=== PATIENT | male | born 1965 | race Caucasian/White ===

== ENCOUNTER 2017-10-24 14:17 | Inpatient (IN) | END 2017-10-26 14:08 | disposition home or self-care (01) | DRG 640 ==

== ENCOUNTER 2017-11-21 19:42 | Emergency (ER) | END 2017-11-21 23:53 | disposition home or self-care (01) ==

== ENCOUNTER 2018-06-28 10:25 | Inpatient (IN) | payer OTHER ==
[2018-06-28] VITALS (24 sets, daily range): BP systolic 150–184; BP diastolic 65–89; PULSE 91–100; RESP 18–24; Ht 165.1 cm; Wt 79.5 kg
[~2018-06-28] VITALS: Ht 165.1 cm; Wt 79.5 kg
[~2018-06-28 10:25] MED LIST: ASPI81TA52 PO; ATOR20TA38 PO; CALC667C PO; FER325 PO; FURO40TA4 PO; GABA100C14 PO; HYDR-3671 PO; METO-429 PO; NIFE60TA18 PO
--- NOTE | 2018-06-28 11:47 | ERD ---
ER Documentation Chief Complaint Chief Complaint coughing up blood x this am, body weakness missed dialysis x 2 days HPI 53-year-old male brought to the emergency department by his son for evaluation of hemoptysis. Patient was in his usual state of health until a few days ago which time he was evaluated in an outside emergency department and diagnosed with hyperkalemia related to his dialysis dependent renal failure. Unfortunately, he never obtained follow-up and has been without dialysis for the last 5 days. According to the son and the patient, he began having frothy pink sputum that he was coughing up today. He had shortness of breath and was brought immediately to the emergency department for evaluation. There was no large volume hemoptysis. Patient reported no chest pain. Patient reported no fever. ROS All systems reviewed and are negative except as per history of present illness. Medications Home Meds Active Scripts Hydralazine Hcl* (Hydralazine Hcl*) 25 Mg Tab, 25 MG PO TID for 30 Days, #90 TAB 1 Refill Prov:HUBERT SHANKS 10/26/17 Reported Medications Ferrous Sulfate* (Ferrous Sulfate*) 325 Mg Tabec, 325 MG PO BID, TAB 11/21/17 Nifedipine* (Nifedipine ER*) 60 Mg Tablet.sa, 60 MG PO BID, TAB.SA 11/21/17 Gabapentin* (Gabapentin*) 100 Mg Capsule, 100 MG PO TID, #90 CAP 10/24/17 Atorvastatin Calcium* (Atorvastatin Calcium*) 20 Mg Tablet, 20 MG PO QHS, #30 TAB 10/24/17 Aspirin (Low Dose Aspirin) 81 Mg Tablet.dr, 81 MG PO DAILY, #30 TAB 10/24/17 Metoprolol Tartrate* (Lopressor*) 50 Mg Tab, 50 MG PO BID, #60 TAB 10/24/17 Furosemide* (Furosemide*) 40 Mg Tablet, 40 MG PO DAILY, TAB 10/24/17 Calcium Acetate* (Calcium Acetate*) 667 Mg Capsule, 667 MG PO WITH MEALS, #30 CAP 10/24/17 Allergies Allergies: Coded Allergies: No Known Allergies (Unverified Allergy, Unknown, 10/24/17) PMhx/Soc History of Surgery: Yes (left eye) Anesthesia Reaction: No Hx Neurological Disorder: No Hx Respiratory Disorders: No Hx Cardiac Disorders: Yes (HTN ) Hx Psychiatric Problems: No Hx Miscellaneous Medical Probl: Yes (ESRD AV fistula L arm) Hx Alcohol Use: Yes Hx Substance Use: No Hx Tobacco Use: No Smoking Status: Never smoker FmHx Noncontributory for chief complaint Physical Exam Vitals Vital Signs Date Temp Pulse Resp B/P (MAP) Pulse Ox O2 O2 Flow FiO2 Time Delivery Rate 06/28/18 97 18 136/73 95 Mask 10.0 10:37 (94) 06/28/18 Simple 10 10:37 Mask 06/28/18 97.8 96 20 149/67 94 10:30 (94) Physical Exam GENERAL: Ill-appearing male. He appears short of breath. HEENT: Pupils equal, round, and reactive to light. EOMI. There is no scleral icterus. NECK: C-spine is soft and supple, there is no meningismus. There is no cervical lymphadenopathy. No JVD LUNGS: Rhonchi and rales bilaterally. Mild tachypnea. No retractions. HEART: Regular rate and rhythm, no murmurs, clicks, rubs or gallops. ABDOMEN: Soft, non-tender, non-distended. There are bowel sounds in all four quadrants. No rebound or guarding. EXTREMITIES: There is no peripheral cyanosis or edema. No focal swelling or erythema. NEURO: The patient moves all four extremities with 5/5 strength. Cranial nerves II - XII are intact. Normal gait. Alert and oriented SKIN: There is no apparent rash or petechiae. HEME/LYMPHATIC: There is no evidence of excessive bruising or lymphedema. PSYCHIATRIC: The patient does not appear anxious or depressed. Result Diagram: 06/28/18 1051 06/28/18 1051 Results 24 hrs Laboratory Tests Test 06/28/18 10:51 White Blood Count 9.7 10^3/ul Red Blood Count 3.06 10^6/ul Hemoglobin 9.8 g/dl Hematocrit 31.1 % Mean Corpuscular Volume 101.6 fl Mean Corpuscular Hemoglobin 32.0 pg Mean Corpuscular Hemoglobin Concent 31.5 g/dl Red Cell Distribution Width 14.0 % Platelet Count 124 10^3/UL Mean Platelet Volume 11.7 fl Immature Granulocytes % 0.600 % Neutrophils % 79.0 % Lymphocytes % 9.9 % Monocytes % 8.9 % Eosinophils % 1.3 % Basophils % 0.3 % Nucleated Red Blood Cells % 0.0 /100WBC Immature Granulocytes # 0.060 10^3/ul Neutrophils # 7.6 10^3/ul Lymphocytes # 1.0 10^3/ul Monocytes # 0.9 10^3/ul Eosinophils # 0.1 10^3/ul Basophils # 0.0 10^3/ul Nucleated Red Blood Cells # 0.0 10^3/ul Prothrombin Time 15.0 Sec Prothrombin Time Ratio 1.2 INR International Normalized Ratio 1.17 Activated Partial Thromboplast Time 31.4 Sec Sodium Level 145 mmol/L Potassium Level 5.5 mmol/L Chloride Level 99 mmol/L Carbon Dioxide Level 19 mmol/L Anion Gap 27 Blood Urea Nitrogen 157 mg/dl Creatinine 18.69 mg/dl Est Glomerular Filtrat Rate mL/min 3 mL/min Glucose Level 136 mg/dl Calcium Level 9.0 mg/dl Total Bilirubin 0.0 mg/dl Direct Bilirubin 0.00 mg/dl Indirect Bilirubin 0.0 mg/dl Aspartate Amino Transf (AST/SGOT) 22 IU/L Alanine Aminotransferase (ALT/SGPT) 21 IU/L Alkaline Phosphatase 86 IU/L Troponin I Pending Total Protein 8.2 g/dl Albumin 4.7 g/dl Globulin 3.50 g/dl Albumin/Globulin Ratio 1.34 Procedures/MDM Patient was taken to a room, seen and evaluated. Comfort measures were initiated. Diagnostic tests were ordered and reviewed. 3 LEAD RHYTHM STRIP: Normal sinus rhythm without ectopy EK lead EKG reviewed by myself: Normal Sinus Rhythm Normal [place] and intervals No ST elevation, depression, or T wave inversion Impression: Normal EKG RADIOLOGY: Reviewed with the radiologist [facility] REEVALUATION: On an oxygen mask, saturations are improved. Respiratory distress was improved. Diagnostic tests were appreciated and arrangements were made for admission MEDICAL DECISION MAKIN-year-old male presents the emergency department for evaluation of hemoptysis. His hemoptysis appears to be related to his pulmonary edema secondary to renal failure. He will require admission to the hospital for oxygen supportive care, dialysis. He is mildly hyperkalemic but with no EKG changes. Diagnostic tests show no evidence of pneumonia or mass or other concerns for the hemoptysis. CRITICAL CARE: Time:>35 minutes Patient has a significant chance of clinical deterioration Treatments/Evaluations: Close monitoring and treatment of unstable vital signs, cardiorespiratory, and neurologic status, while maintaining tight balance of fluid, respiratory, and cardiac interventions. Departure Diagnosis: Primary Impression: Renal failure Additional Impressions: Pulmonary edema Hypoxia Condition: Serious CHAYADAVE Jun 28, 2018 11:47
[2018-06-28] MEDS ORDERED: CALC667C PO (12:20)
[2018-06-28] MEDS ORDERED: METO-429 PO (12:20)
[2018-06-28] MEDS ORDERED: BACL10TA PO (12:21)
[2018-06-28] MEDS ORDERED: HYDR-3671 PO (12:21)
--- NOTE | 2018-06-28 13:42 | CONS ---
Assessment/Plan Assessment/Plan Assessment/Plan (Daily) 1. acute fluid overload with pulmonary edema due to missed HD 2. acute hyperkalemia due to missed HD 3. ESRD on HD 4. H/O HTN 5. H/o HL 6. Left upper extremity AVF in place Plan: seen in ED, pt is hyperkalemic with acidosis and fluid overloaded due to missed HD BP has been stable in ED will arrange Stat HD today with 2 K bath due to hyperkalemia Also HD for tomorrow ordered Pt and his son does not know HD unit name and [facility] name, we will have casework manager to find out his HD unit name Thanks for consultation, I will continue to follow up Consultation Date/Type/Reason Admit Date/Time 06/28/2018 Date of Consultation: Jun 28, 2018 Type of Consult NEPHROLOGY Reason for Consultation acute fluid overload, hyperkalemia, missed HD Requesting Provider: MARINA REYES MD Date/Time of Note DATE: 06/28/18 TIME: 13:41 Hx of Present Illness 53-year-old male was brought in by his son for SOB cough and evaluation for HD need. pt has right IJ HD catheter in place, PMHx of HTN, ESRD on HD - who missed HD for last 5 days. pt was recently seen in outside ER for hyperklaemia and since then he did not go for HD - he was c/o SOB, Cough with frothy sputum upon ER presentation- pt was hypoxic in ED requiring oxygen 10 L facemask- but was able to speak in full sentences. ED evaluateion revealed Hyperkalemia with K 5.5, BUN/Cr 157/18.69.,HCo3 19- CXR showed R IJ HD catheter in place, Moderate cardiomegaly with pulmonary vascular congestion. Renal has been consulted for emergent HD need due to acute fluid overload, pt has been getting admitted to telemetry floor. As per Son and patient they do not know Primary HD center and [facility] name. Constitutional: no complaints Eyes: no complaints ENT: congestion Respiratory: cough, pleuritic pain, shortness of breath Cardiovascular: chest pain Gastrointestinal: no complaints Genitourinary: no complaints Musculoskeletal: no complaints Skin: no complaints Neurologic: no complaints Endocrine: no complaints Lymphatic: no complaints Psychological: no complaints Immunologic: no complaints Past Medical History Medical History: high cholesterol, hypertension, other (ESRD on HD ) Home Meds Active Scripts Hydralazine Hcl* (Hydralazine Hcl*) 25 Mg Tab, 25 MG PO TID for 30 Days, #90 TAB 1 Refill Prov:HUBERT SHANKS 10/26/17 Reported Medications Baclofen* (Baclofen*) 10 Mg Tablet, 10 MG PO QHS, TAB 06/28/18 Hydralazine Hcl* (Hydralazine Hcl*) 25 Mg Tab, 25 MG PO BID PRN for ELEVATED BLOOD PRESSURE, #60 TAB 06/28/18 Metoprolol Tartrate* (Lopressor*) 50 Mg Tab, 50 MG PO QHS, #60 TAB 06/28/18 Calcium Acetate* (Calcium Acetate*) 667 Mg Capsule, 1334 MG PO WITH MEALS, #60 CAP 06/28/18 Ferrous Sulfate* (Ferrous Sulfate*) 325 Mg Tabec, 325 MG PO BID, TAB 11/21/17 Nifedipine* (Nifedipine ER*) 60 Mg Tablet.sa, 60 MG PO BID, TAB.SA 11/21/17 Gabapentin* (Gabapentin*) 100 Mg Capsule, 100 MG PO TID, #90 CAP 10/24/17 Atorvastatin Calcium* (Atorvastatin Calcium*) 20 Mg Tablet, 20 MG PO QHS, #30 TAB 10/24/17 Aspirin (Low Dose Aspirin) 81 Mg Tablet.dr, 81 MG PO DAILY, #30 TAB 10/24/17 Furosemide* (Furosemide*) 40 Mg Tablet, 40 MG PO DAILY, TAB 10/24/17 Discontinued Reported Medications Metoprolol Tartrate* (Lopressor*) 50 Mg Tab, 50 MG PO BID, #60 TAB 10/24/17 Calcium Acetate* (Calcium Acetate*) 667 Mg Capsule, 667 MG PO WITH MEALS, #30 C AP 10/24/17 Medications Current Medications Heparin Sodium (Porcine) (Heparin (1000 Units/ml)) 4,000 unit AFTER DIALYSIS CATHETER ; Start 06/28/18 at 14:00; Status UNV Albumin Human 100 ml @ 100 mls/hr WITH DIALYSIS PRN IV SBP <90 DURING DIALYSIS; Start 06/28/18 at 14:00; Status UNV Allergies: Coded Allergies: No Known Allergies (Unverified Allergy, Unknown, 06/28/18) Past Surgical History Past Surgical Hx: other (Right chest dialysis catheter ) Family History Significant Family History: other (Not available ) Social History Alcohol Use: none Smoking Status: Never smoker Drug Use: none Exam/Review of Systems Exam Vitals Vital Signs Date Temp Pulse Resp B/P (MAP) Pulse Ox O2 O2 Flow FiO2 Time Delivery Rate 06/28/18 93 12 142/77 100 Mask 10.0 11:43 (98) 06/28/18 97.8 10:30 Constitutional: distress (moderate distress due to hypoxia ) Psych: no complaints Head: normocephalic Eyes: nl conjunctiva ENMT: nl external ears & nose Neck: supple, non-tender Respiratory: congested cough, diminished breath sounds, other (Bilateral crac kles upto mid lung zone, RLL rales , no wheezing ) Cardiovascular: regular rate and rhythm Gastrointestinal: soft, non-tender Musculoskeletal: swelling (2-3+ pitting edema ) Extremities: normal pulses Neurological: CIRCULAR RIPSAW OPERATOR II-XII intact, nl mental status, nl speech, nl strength Skin: nl turgor Lymph: nl lymph nodes Results Result Diagram: 06/28/18 1051 06/28/18 1051 Results 24hrs Laboratory Tests Test 06/28/18 10:51 White Blood Count 9.7 # Red Blood Count 3.06 L Hemoglobin 9.8 L Hematocrit 31.1 L Mean Corpuscular Volume 101.6 H Mean Corpuscular Hemoglobin 32.0 Mean Corpuscular Hemoglobin Concent 31.5 L Red Cell Distribution Width 14.0 Platelet Count 124 #L Mean Platelet Volume 11.7 H Immature Granulocytes % 0.600 H Neutrophils % 79.0 H Lymphocytes % 9.9 L Monocytes % 8.9 Eosinophils % 1.3 Basophils % 0.3 Nucleated Red Blood Cells % 0.0 Immature Granulocytes # 0.060 H Neutrophils # 7.6 H Lymphocytes # 1.0 Monocytes # 0.9 Eosinophils # 0.1 Basophils # 0.0 Nucleated Red Blood Cells # 0.0 Prothrombin Time 15.0 H Prothrombin Time Ratio 1.2 INR International Normalized Ratio 1.17 Activated Partial Thromboplast Time 31.4 Sodium Level 145 H Potassium Level 5.5 H Chloride Level 99 Carbon Dioxide Level 19 L Anion Gap 27 H Blood Urea Nitrogen 157 H Creatinine 18.69 H Est Glomerular Filtrat Rate mL/min 3 L Glucose Level 136 Calcium Level 9.0 Total Bilirubin 0.0 L Direct Bilirubin 0.00 Indirect Bilirubin 0.0 Aspartate Amino Transf (AST/SGOT) 22 Alanine Aminotransferase (ALT/SGPT) 21 Alkaline Phosphatase 86 Troponin I 0.144 *H Total Protein 8.2 H Albumin 4.7 Globulin 3.50 H Albumin/Globulin Ratio 1.34 Medications Medication Current Medications Heparin Sodium (Porcine) (Heparin (1000 Units/ml)) 4,000 unit AFTER DIALYSIS CATHETER ; Start 06/28/18 at 14:00; Status UNV Albumin Human 100 ml @ 100 mls/hr WITH DIALYSIS PRN IV SBP <90 DURING DI ALYSIS; Start 06/28/18 at 14:00; Status UNV UGO TRUONG MD Jun 28, 2018 13:42
[2018-06-28] MEDS ORDERED: SODIUM CHLORIDE 0.9% 1L BAG IV PRN (14:00)
[2018-06-28] MEDS: NIFEdipine (XL) 60 MG TAB PO SCH ×2 (15:22→23:04)
[2018-06-28] MEDS ORDERED: ACETAMINOPHEN 325 MG TAB PO PRN (15:30)
[2018-06-28] MEDS ORDERED: ZOLPIDEM 5 MG TAB PO PRN (15:30)
--- NOTE | 2018-06-28 17:53 | HP ---
DATE OF ADMISSION: 06/28/2018 CHIEF COMPLAINT: Shortness of breath. HISTORY OF PRESENT ILLNESS: A 53-year-old male with end-stage renal disease, on hemodialysis, presen ts to Emergency Room with complaint of shortness of breath x2 days. The patient denies any chest heather n, no cough, no fevers or chills. He missed his dialysis for the last 5 days prior to admission. Th e patient is a poor historian. 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 Initial evaluation revealed evide nce of volume overload and associated hypoxia. Serum potassium was 5.5. PAST MEDICAL HISTORY: 1. End-stage renal disease, on hemodialysis. 2. Hypertension. 3. Hyperlipidemia. SOCIAL HISTORY: The patient lives at home. He denies tobacco or alcohol use. PHYSICAL EXAMINATION: GENERAL: Well-developed, well-nourished male who is in moderate respiratory distress. VITAL SIGNS: Stable. He is afebrile. HEENT: Extraocular muscles intact. Pupils equal and reactive to light bilaterally. Sclerae anicter ic. Oropharynx is clear and moist. NECK: Supple. No JVD. No carotid bruits. LUNGS: Crackles at the bases with diffuse rhonchi. CARDIAC: Regular rate and rhythm. No murmurs or gallops. ABDOMEN: Soft, nontender, nondistended. Normoactive bowel sounds. EXTREMITIES: Mild edema. ASSESSMENT: 1. A 53-year-old male presenting with volume overload. 2. End-stage renal disease. The patient missed his dialysis for the last 5 days prior to admission. 3. Hypertension. 4. Hyperlipidemia. PLAN: 1. Place in early observation. 2. Proceed with urgent hemodialysis. 3. Resume home medications. 4. Case was discussed with Dr. Badillo. Dictated By: MARINA REYES MD SK/NTS Conf#: [id number] DID#: [id number] CC: MARINA REYES MD;*EndCC*
[2018-06-28] MEDS: CALCIUM ACETATE 667 MG CAP PO SCH (18:00)
[2018-06-28] MEDS: HEPARIN 1000 UNITS/ML 10 ML INJ CATHETER SCH (21:22)
[2018-06-28] MEDS: ATORVASTATIN 20 MG TAB PO SCH (21:30)
[2018-06-28] MEDS: METOPROLOL 50 MG TAB PO SCH (21:32)
[2018-06-28] MEDS: BACLOFEN 10 MG TAB PO SCH (21:32)
[2018-06-28] MEDS: GABAPENTIN 100 MG CAP PO SCH (21:33)
[2018-06-29] VITALS (27 sets, daily range): BP systolic 89–184; BP diastolic 58–83; PULSE 71–98; RESP 17–20
[2018-06-29] MEDS ORDERED: hydrALAzine 20 MG INJ IV PRN (00:30)
--- NOTE | 2018-06-29 08:09 | PDOCDIS ---
Discharge Instructions CONDITION [id number] Patient Condition: [id number] Good HOME CARE INSTRUCTIONS: Marcus Diet Instructions: Gino FOLLOW UP/APPOINTMENTS Follow-up Plan pcp 1 week Outpatient HD on tuesday Nylon Machine Operator 1 week OTHER ORDERS: Other Orders: Do not miss dialysis sessions MARINA REYES MD Jun 29, 2018 08:09
[2018-06-29] MEDS: NIFEdipine (XL) 60 MG TAB PO SCH ×2 (09:00→21:31)
--- NOTE | 2018-06-29 09:16 | PDOCDIS ---
Discharge Instructions DIAGNOSIS Discharge Diagnosis 53-year-old male with fluid overload End-stage renal disease, on hemodialysis Hyperkalemia, resolved Hypertension Hyperlipidemia Noncompliance 53-year-old male with end-stage renal disease, on hemodialysis, presented to emergency room with complaint of shortness of breath and frothy sputum. He was diagnosed with fluid overload and hyperkalemia. Patient underwent urgent hemodialysis and his condition improved. Serum potassium was back to normal. He will undergo repeat dialysis prior to discharge. Patient still had crackles at the bases. Case was discussed with Dr. Badillo. He is in a stable condition for discharge his room air saturation is greater than 93%. I also notified his instructional coach, Dr. Edy TRAMMELL [id number] Patient Condition: [id number] Good HOME CARE INSTRUCTIONS: [id number] Diet Instructions: [id number] Activity Restrictions: [id number] No Restrictions FOLLOW UP/APPOINTMENTS Follow-up Plan pcp 1 week Outpatient HD on tuesday Grip 1 week MARINA REYES MD Jun 29, 2018 09:16
[2018-06-29] MEDS: GABAPENTIN 100 MG CAP PO SCH ×3 (09:18→21:32)
[2018-06-29] MEDS: ASPIRIN (EC) 81 MG TAB PO SCH (09:20)
[2018-06-29] MEDS: CALCIUM ACETATE 667 MG CAP PO SCH ×3 (09:20→18:00)
[2018-06-29] MEDS: FUROSEMIDE 40 MG TAB PO SCH (09:22)
--- NOTE | 2018-06-29 10:57 | CONS ---
Assessment/Plan Assessment/Plan Assessment/Plan (Daily) 1. acute fluid overload with pulmonary edema due to missed HD- Improving 2. acute hyperkalemia due to missed HD- Resolved 3. ESRD on HD - missed HD x 5 days 4. H/O HTN 5. H/o HL 6. Left upper extremity AVF in place Plan: K improved to normal, BUN/Cr improving plan for HD today, pt follows at [facility] ok to d/c after HD today will follow up and plan for HD tomorrow if pt stays here. Consultation Date/Type/Reason Admit Date/Time Jun 28, 2018 at 12:44 Initial Consult Date 06/28/18 Type of Consult NEPHROLOGY Requesting Provider: MARINA REYES MD Date/Time of Note DATE: 06/29/18 TIME: 10:57 Exam/Review of Systems Exam Vitals Vital Signs Date Temp Pulse Resp B/P (MAP) Pulse Ox O2 O2 Flow FiO2 Time Delivery Rate 06/29/18 88 08:11 06/29/18 Simple 5.0 07:27 Mask 06/29/18 98.3 18 126/60 94 07:04 (82) Intake and Output 06/28/18 06/28/18 06/29/18 1515:00 23:00 07:00 IntakeIntake Total 300 ml 100 ml OutputOutput Total 2200 ml BalanceBalance -1900 ml 100 ml Exam Constitutional: distress (moderate distress due to hypoxia ) Respiratory: congested cough, diminished breath sounds, other (Bilateral crackles upto mid lung zone, RLL rales , no wheezing ) Cardiovascular: regular rate and rhythm Gastrointestinal: soft, non-tender Musculoskeletal: swelling (2-3+ pitting edema ) Extremities: normal pulses Neurological: REGIONAL ECONOMIC LIAISON II-XII intact, nl mental status, nl speech, nl strength Results Result Diagram: 06/29/18 0540 06/29/18 0540 Results 24hrs Laboratory Tests Test 06/29/18 05:40 White Blood Count 10.7 Red Blood Count 2.82 L Hemoglobin 9.1 L Hematocrit 28.2 L Mean Corpuscular Volume 100.0 Mean Corpuscular Hemoglobin 32.3 Mean Corpuscular Hemoglobin Concent 32.3 Red Cell Distribution Width 14.2 Platelet Count 125 L Mean Platelet Volume 11.7 H Immature Granulocytes % 0.500 H Neutrophils % 78.7 H Lymphocytes % 12.4 L Monocytes % 6.8 Eosinophils % 1.3 Basophils % 0.3 Nucleated Red Blood Cells % 0.0 Immature Granulocytes # 0.050 H Neutrophils # 8.4 H Lymphocytes # 1.3 Monocytes # 0.7 Eosinophils # 0.1 Basophils # 0.0 Nucleated Red Blood Cells # 0.0 Prothrombin Time 16.2 H Prothrombin Time Ratio 1.3 INR International Normalized Ratio 1.29 Activated Partial Thromboplast Time 37.4 H Sodium Level 141 Potassium Level 4.3 Chloride Level 98 Carbon Dioxide Level 31 # Anion Gap 12 # Blood Urea Nitrogen 63 #H Creatinine 10.36 #H Est Glomerular Filtrat Rate mL/min 5 L Glucose Level 96 # Calcium Level 8.5 Phosphorus Level 5.9 H Magnesium Level 2.1 Total Bilirubin 0.1 L Direct Bilirubin 0.00 Indirect Bilirubin 0.1 Aspartate Amino Transf (AST/SGOT) 24 Alanine Aminotransferase (ALT/SGPT) 20 Alkaline Phosphatase 65 Total Protein 7.0 # Albumin 3.8 Globulin 3.20 Albumin/Globulin Ratio 1.18 Medications Medication Current Medications Heparin Sodium (Porcine) (Heparin (1000 Units/ml)) 4,000 unit AFTER DIALYSIS CATHETER Last administered on 06/28/18at 21:22; Admin Dose 4,000 UNIT; Start 06/28/18 at 14:00 Albumin Human 100 ml @ 100 mls/hr WITH DIALYSIS PRN IV SBP <90 DURING DIALYSIS; Start 06/28/18 at 14:00 Sodium Chloride (NS) -To prime the dialy... DIRECTED FOR HD PRN IV HD; Start 06/28/18 at 14:00 Aspirin (Halfprin) 81 mg DAILY PO Last administered on 06/29/18at 09:20; Admin Dose 81 MG; Start 06/29/18 at 09:00 Atorvastatin Calcium (Lipitor) 20 mg QHS PO Last administered on 06/28/18at 21:30; Admin Dose 20 MG; Start 06/28/18 at 21:00 Baclofen (Lioresal) 10 mg QHS PO Last administered on 06/28/18at 21:32; Admin Dose 10 MG; Start 06/28/18 at 21:00 Calcium Acetate (Phoslo) 1,334 mg WITH MEALS PO Last administered on 06/29/18at 09:20; Admin Dose 1,334 MG; Start 06/28/18 at 18:00 Furosemide (Lasix) 40 mg DAILY PO Last administered on 06/29/18at 09:22; Admin Dose 40 MG; Start 06/29/18 at 09:00 Gabapentin (Neurontin) 100 mg TID PO Last administered on 06/29/18at 09:18; Admin Dose 100 MG; Start 06/28/18 at 21:00 Hydralazine HCl (Apresoline) 25 mg BID PRN PO ELEVATED BLOOD PRESSURE; Start 06/28/18 at 14:00 Hydralazine HCl (Apresoline) 25 mg TID PO Last administered on 06/28/18at 21:32; Admin Dose 25 MG; Start 06/28/18 at 21:00 Metoprolol Tartrate (Lopressor) 50 mg QHS PO Last administered on 06/28/18at 21:32; Admin Dose 50 MG; Start 06/28/18 at 21:00 Nifedipine (Procardia Xl) 60 mg BID PO Last administered on 06/28/18at 23:04; Admin Dose 60 MG; Start 06/28/18 at 14:00 Ondansetron HCl (Zofran Inj) 4 mg Q4H PRN IV NAUSEA AND/OR VOMITING; Start 06/28/18 at 15:00 Zolpidem Tartrate (Ambien) 5 mg HS PRN PO INSOMNIA; Start 06/28/18 at 15:30 Acetaminophen (Tylenol Tab) 650 mg Q4H PRN PO MILD PAIN(1-3)OR ELEVATED TEMP Last administered on 06/29/18at 00:51; Admin Dose 650 MG; Start 06/28/18 at 15:30 Hydralazine HCl (Apresoline) 10 mg Q4H PRN IV ELEVATED SYSTOLIC BP Last administered on 06/29/18at 00:44; Admin Dose 10 MG; Start 06/29/18 at 00:30 UGO TRUONG MD Jun 29, 2018 10:57
[2018-06-29] MEDS: ALBUMIN HUMAN 25% 100 ML IV PRN (18:10)
[2018-06-29] MEDS: HEPARIN 1000 UNITS/ML 10 ML INJ CATHETER SCH (20:06)
[2018-06-29] MEDS: BACLOFEN 10 MG TAB PO SCH (21:32)
[2018-06-29] MEDS: METOPROLOL 50 MG TAB PO SCH (21:32)
[2018-06-29] MEDS: ATORVASTATIN 20 MG TAB PO SCH (21:32)
[2018-06-30] VITALS (25 sets, daily range): BP systolic 87–157; BP diastolic 53–89; PULSE 73–86; RESP 20–22
[2018-06-30] MEDS: NIFEdipine (XL) 60 MG TAB PO SCH ×2 (07:44→21:16)
[2018-06-30] MEDS: GABAPENTIN 100 MG CAP PO SCH ×3 (09:05→21:17)
[2018-06-30] MEDS: CALCIUM ACETATE 667 MG CAP PO SCH ×3 (09:05→17:35)
[2018-06-30] MEDS: FUROSEMIDE 40 MG TAB PO SCH (09:06)
[2018-06-30] MEDS: ASPIRIN (EC) 81 MG TAB PO SCH (09:06)
--- NOTE | 2018-06-30 09:39 | PDOCDIS ---
Discharge Instructions DIAGNOSIS Discharge Diagnosis 53-year-old male with fluid overload End-stage renal disease, on hemodialysis Hyperkalemia, resolved Hypertension Hyperlipidemia Noncompliance 53-year-old male with end-stage renal disease, on hemodialysis, presented to emergency room with complaint of shortness of breath and frothy sputum. He was diagnosed with fluid overload and hyperkalemia. Patient underwent urgent hemodialysis and his condition improved. Serum potassium was back to normal. He required dialysis 3 consecutive days. He is undergoing repeat dialysis prior to discharge. Patient still had crackles at the bases. Case was discussed with Dr. Badillo. He is in a stable condition for discharge his room air saturation is greater than 93%. I also notified his visiting teacher, Dr. Snow. Patient reported shaking prior to dialysis on Tuesday and they refused to dialyze him. He was evaluated at [facility] and discharged home from ER. I will refer him to neurology for further evaluation. CONDITION [id number] Patient Condition: [id number] Good HOME CARE INSTRUCTIONS: [id number] Diet Instructions: [id number] Activity Restrictions: [id number] No Restrictions FOLLOW UP/APPOINTMENTS Follow-up Plan pcp 1 week Outpatient HD Windows System Admin 1 week Neurology follow-up MARINA REYES MD Jun 30, 2018 09:39
[2018-06-30] MEDS: ALBUMIN HUMAN 25% 100 ML IV PRN (09:49)
--- NOTE | 2018-06-30 10:14 | CONS ---
Assessment/Plan Assessment/Plan Assessment/Plan (Daily) 1. acute fluid overload with pulmonary edema due to missed HD- Improving 2. acute hyperkalemia due to missed HD- Resolved 3. ESRD on HD - missed HD x 5 days 4. H/O HTN 5. H/o HL 6. Left upper extremity AVF in place Plan: s/p HD today AM 2.8 L removed, BP stable, afebrile plan for HD tomorrow if pt stays here- he follows at [facility] HD center will follow up Consultation Date/Type/Reason Admit Date/Time Jun 28, 2018 at 12:44 Initial Consult Date 06/28/18 Type of Consult NEPHROLOGY Requesting Provider: MARINA REYES MD Date/Time of Note DATE: 06/30/18 TIME: 10:14 24 HR Interval Summary Free Text/Dictation s/p HD today AM 2.8 L removed, BP stable, afebrile Exam/Review of Systems Exam Vitals Vital Signs Date Temp Pulse Resp B/P (MAP) Pulse Ox O2 O2 Flow FiO2 Time Delivery Rate 06/30/18 75 10:00 06/30/18 Nasal 3.0 09:00 Cannula 06/30/18 20 139/74 98 07:55 (95) 06/30/18 98.0 07:33 Intake and Output 06/29/18 06/29/18 06/30/18 1515:00 23:00 07:00 IntakeIntake Total 400 ml OutputOutput Total 2100 ml BalanceBalance -1700 ml Exam Constitutional: distress (moderate distress due to hypoxia ) Respiratory: congested cough, diminished breath sounds, other (Bilateral crackles upto mid lung zone, RLL rales , no wheezing ) Cardiovascular: regular rate and rhythm Gastrointestinal: soft, non-tender Musculoskeletal: swelling (1-2+ pitting edema ) Extremities: normal pulses 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 DIRECTED FOR HD PRN IV HD; Start 06/28/18 at 14:00 Aspirin (Halfprin) 81 mg DAILY PO Last administered on 06/30/18 09:06; Admin Dose 81 MG; Start 06/29/18 at 09:00 Atorvastatin Calcium (Lipitor) 20 mg QHS PO Last administered on 06/29/18 21:32; Admin Dose 20 MG; Start 06/28/18 at 21:00 Baclofen (Lioresal) 10 mg QHS PO Last administered on 06/29/18 21:32; Admin Dose 10 MG; Start 06/28/18 at 21:00 Calcium Acetate (Phoslo) 1,334 mg WITH MEALS PO Last administered on 06/30/18 09:05; Admin Dose 1,334 MG; Start 06/28/18 at 18:00 Furosemide (Lasix) 40 mg DAILY PO Last administered on 06/30/18 09:06; Admin Dose 40 MG; Start 06/29/18 at 09:00 Gabapentin (Neurontin) 100 mg TID PO Last administered on 06/30/18 09:05; Adm in Dose 100 MG; Start 06/28/18 at 21:00 Hydralazine HCl (Apresoline) 25 mg BID PRN PO ELEVATED BLOOD PRESSURE; Start 06/28/18 at 14:00 Hydralazine HCl (Apresoline) 25 mg TID PO Last administered on 06/29/18 21:31; Admin Dose 25 MG; Start 06/28/18 at 21:00 Metoprolol Tartrate (Lopressor) 50 mg QHS PO Last administered on 06/29/18 21:32; Admin Dose 50 MG; Start 06/28/18 at 21:00 Nifedipine (Procardia Xl) 60 mg BID PO Last administered on 06/29/18 21:31; Admin Dose 60 MG; Start 06/28/18 at 14:00 Ondansetron HCl (Zofran Inj) 4 mg Q4H PRN IV NAUSEA AND/OR VOMITING; Start 06/28/18 at 15:00 Zolpidem Tartrate (Ambien) 5 mg HS PRN PO INSOMNIA; Start 06/28/18 at 15:30 Acetaminophen (Tylenol Tab) 650 mg Q4H PRN PO MILD PAIN(1-3)OR ELEVATED TEMP Last administered on 06/29/18at 00:51; Admin Dose 650 MG; Start 06/28/18 at 15:30 Hydralazine HCl (Apresoline) 10 mg Q4H PRN IV ELEVATED SYSTOLIC BP Last administered on 06/29/18at 00:44; Admin Dose 10 MG; Start 06/29/18 at 00:30 UGO TRUONG MD Jun 30, 2018 10:14
[2018-06-30] MEDS: HEPARIN 1000 UNITS/ML 10 ML INJ CATHETER SCH (11:12)
[2018-06-30] MEDS: ONDANSETRON 4 MG INJ IV PRN (12:49)
[2018-06-30] MEDS: ATORVASTATIN 20 MG TAB PO SCH (21:14)
[2018-06-30] MEDS: METOPROLOL 50 MG TAB PO SCH (21:17)
[2018-06-30] MEDS: BACLOFEN 10 MG TAB PO SCH (21:17)
[2018-07-01] VITALS (26 sets, daily range): BP systolic 82–121; BP diastolic 53–69; PULSE 65–78; RESP 18–22
[2018-07-01] MEDS: GABAPENTIN 100 MG CAP PO SCH ×3 (08:25→21:25)
[2018-07-01] MEDS: FUROSEMIDE 40 MG TAB PO SCH (08:25)
[2018-07-01] MEDS: ASPIRIN (EC) 81 MG TAB PO SCH (08:25)
[2018-07-01] MEDS: CALCIUM ACETATE 667 MG CAP PO SCH ×3 (08:25→17:55)
[2018-07-01] MEDS: NIFEdipine (XL) 60 MG TAB PO SCH (08:26)
[2018-07-01] MEDS: ONDANSETRON 4 MG INJ IV PRN (08:28)
[2018-07-01] MEDS: ALBUMIN HUMAN 25% 100 ML IV PRN ×2 (10:55→12:07)
[2018-07-01] MEDS: HEPARIN 1000 UNITS/ML 10 ML INJ CATHETER SCH (13:37)
--- NOTE | 2018-07-01 15:21 | CONS ---
Assessment/Plan Assessment/Plan Assessment/Plan (Daily) 1. acute fluid overload with pulmonary edema due to missed HD- Improving 2. acute hyperkalemia due to missed HD- Resolved 3. ESRD on HD - missed HD x 5 days 4. H/O HTN 5. H/o HL 6. Left upper extremity AVF in place Plan: s/p HD today 1.5 L removed, BP stable, afebrile plan to discharge today; he follows at [facility] HD center will follow up\ Plan of care raciel Badillo. dw staff Consultation Date/Type/Reason Admit Date/Time Jun 28, 2018 at 12:44 Initial Consult Date 06/28/18 Requesting Provider: MARINA REYES MD Date/Time of Note DATE: 07/01/18 TIME: 15:18 24 HR Interval Summary Free Text/Dictation s/p HD today 1.5 L removed, BP stable, afebrile - May be discharged today Detailed Summary Eyes: no complaints ENT: no complaints Respiratory: no complaints Cardiovascular: no complaints Gastrointestinal: no complaints Genitourinary: no complaints Musculoskeletal: no complaints Skin: no complaints Neurologic: no complaints Exam/Review of Systems Exam Vitals Vital Signs Date Temp Pulse Resp B/P (MAP) Pulse Ox O2 O2 Flow FiO2 Time Delivery Rate 07/01/18 65 18 120/62 98 Nasal 3.0 14:00 (81) Cannula 07/01/18 97.9 11:30 Intake and Output 06/30/18 06/30/18 07/01/18 1515:00 23:00 07:00 IntakeIntake Total 630 ml 300 ml OutputOutput Total 3400 ml BalanceBalance -3400 ml 630 ml 300 ml Constitutional: alert, well developed Psych: nl mood/affect Head: atraumatic Eyes: nl lids, nl sclera ENMT: nl external ears & nose Neck: non-tender Respiratory: clear to auscultation (bilatrally) Cardiovascular: nl pulses, other (s1s2) Gastrointestinal: soft, non-tender Musculoskeletal: nl extremities to inspection Extremities: normal pulses Neurological: nl speech, other (alert/responsive) Lymph: nontender Results Result Diagram: 06/29/18 0540 06/29/18 0540 Medications Medication Current Medications Heparin Sodium (Porcine) (Heparin (1000 Units/ml)) 4,000 unit AFTER DIALYSIS CATHETER Last administered on 07/01/18 13:37; Admin Dose 3,300 UNIT; Start 06/28/18 at 14:00 Albumin Human 100 ml @ 100 mls/hr WITH DIALYSIS PRN IV SBP <90 DURING DIALYSIS Last administered on 07/01/18 12:07; Admin Dose 100 MLS/HR; Start 06/28/18 at 14:00 Sodium Chloride (NS) -To prime the dialy... DIRECTED FOR HD PRN IV HD; Start 06/28/18 at 14:00 Aspirin (Halfprin) 81 mg DAILY PO Last administered on 07/01/18 08:25; Admin Dose 81 MG; Start 06/29/18 at 09:00 Atorvastatin Calcium (Lipitor) 20 mg QHS PO Last administered on 06/30/18 21:14; Admin Dose 20 MG; Start 06/28/18 at 21:00 Baclofen (Lioresal) 10 mg QHS PO Last administered on 06/30/18 21:17; Admin Dose 10 MG; Start 06/28/18 at 21:00 Calcium Acetate (Phoslo) 1,334 mg WITH MEALS PO Last administered on 07/01/18 12:33; Admin Dose 1,334 MG; Start 06/28/18 at 18:00 Furosemide (Lasix) 40 mg DAILY PO Last administered on 07/01/18 08:25; Admin Dose 40 MG; Start 06/29/18 at 09:00 Gabapentin (Neurontin) 100 mg TID PO Last administered on 07/01/18 12:33; Admin Dose 100 MG; Start 06/28/18 at 21:00 Hydralazine HCl (Apresoline) 25 mg BID PRN PO ELEVATED BLOOD PRESSURE; Start 06/28/18 at 14:00 Hydralazine HCl (Apresoline) 25 mg TID PO Last administered on 06/30/18 21:18; Admin Dose 25 MG; Start 06/28/18 at 21:00 Metoprolol Tartrate (Lopressor) 50 mg QHS PO Last administered on 06/30/18 21:17; Admin Dose 50 MG; Start 06/28/18 at 21:00 Nifedipine (Procardia Xl) 60 mg BID PO Last administered on 06/30/18 21:16; Admin Dose 60 MG; Start 06/28/18 at 14:00 Ondansetron HCl (Zofran Inj) 4 mg Q4H PRN IV NAUSEA AND/OR VOMITING Last administered on 07/01/18 08:28; Admin Dose 4 MG; Start 06/28/18 at 15:00 Zolpidem Tartrate (Ambien) 5 mg HS PRN PO INSOMNIA; Start 06/28/18 at 15:30 Acetaminophen (Tylenol Tab) 650 mg Q4H PRN PO MILD PAIN(1-3)OR ELEVATED TEMP Last administered on 06/29/18at 00:51; Admin Dose 650 MG; Start 06/28/18 at 15:30 Hydralazine HCl (Apresoline) 10 mg Q4H PRN IV ELEVATED SYSTOLIC BP Last administered on 06/29/18at 00:44; Admin Dose 10 MG; Start 06/29/18 at 00:30 ANI ESCALONA Jul 01, 2018 15:21
[2018-07-01] MEDS: METOPROLOL 25 MG TAB PO SCH (21:00)
[2018-07-01] MEDS: NIFEdipine (XL) 30 MG TAB PO SCH (21:25)
[2018-07-01] MEDS: BACLOFEN 10 MG TAB PO SCH (21:25)
[2018-07-01] MEDS: ATORVASTATIN 20 MG TAB PO SCH (21:25)
[2018-07-02] VITALS (10 sets, daily range): BP systolic 102–118; BP diastolic 59–67; PULSE 60–74; RESP 16–19
[2018-07-02] MEDS: CALCIUM ACETATE 667 MG CAP PO SCH ×3 (08:23→17:43)
[2018-07-02] MEDS: GABAPENTIN 100 MG CAP PO SCH ×3 (08:24→20:06)
[2018-07-02] MEDS: ASPIRIN (EC) 81 MG TAB PO SCH (08:24)
[2018-07-02] MEDS: NIFEdipine (XL) 30 MG TAB PO SCH ×2 (08:24→20:07)
[2018-07-02] MEDS: FUROSEMIDE 40 MG TAB PO SCH (08:25)
--- NOTE | 2018-07-02 09:22 | PN ---
Date/Time of Note Date/Time of Note DATE: 07/02/18 TIME: 09:18 Subjective Patient remains short of breath. No chest pain. No cough. Afebrile vital signs are stable Neck supple no JVD Lungs with crackles at the bases Cardiac regular rate and rhythm Abdomen soft nontender nondistended normoactive bowel sounds Extremities no clubbing cyanosis or edema Objective Vitals Vital Signs Date Temp Pulse Resp B/P (MAP) Pulse Ox O2 O2 Flow FiO2 Time Delivery Rate 07/02/18 69 08:55 07/02/18 98.0 18 114/67 88 07:41 (83) 07/02/18 Room Air 04:03 07/01/18 2.0 19:55 Intake and Output 07/01/18 07/01/18 07/02/18 1515:00 23:00 07:00 IntakeIntake Total 600 ml OutputOutput Total 2300 ml 1500 ml BalanceBalance -2300 ml -900 ml Results Result Diagram: 07/02/18 0501 07/02/18 0501 Medications Medications Current Medications Heparin Sodium (Porcine) (Heparin (1000 Units/ml)) 4,000 unit AFTER DIALYSIS CATHETER Last administered on 07/01/18at 13:37; Admin Dose 3,300 UNIT; Start 06/28/18 at 14:00 Albumin Human 100 ml @ 100 mls/hr WITH DIALYSIS PRN IV SBP <90 DURING DIALYSIS Last administered on 07/01/18at 12:07; Admin Dose 100 MLS/HR; Start 06/28/18 at 14:00 Sodium Chloride (NS) -To prime the dialy... DIRECTED FOR HD PRN IV HD; Start 06/28/18 at 14:00 Aspirin (Halfprin) 81 mg DAILY PO Last administered on 07/02/18at 08:24; Admin Dose 81 MG; Start 06/29/18 at 09:00 Atorvastatin Calcium (Lipitor) 20 mg QHS PO Last administered on 07/01/18 21:25; Admin Dose 20 MG; Start 06/28/18 at 21:00 Baclofen (Lioresal) 10 mg QHS PO Last administered on 07/01/18 21:25; Admin Dose 10 MG; Start 06/28/18 at 21:00 Calcium Acetate (Phoslo) 1,334 mg WITH MEALS PO Last administered on 07/02/18 08:23; Admin Dose 1,334 MG; Start 06/28/18 at 18:00 Furosemide (Lasix) 40 mg DAILY PO Last administered on 07/02/18 08:25; Admin Dose 40 MG; Start 06/29/18 at 09:00 Gabapentin (Neurontin) 100 mg TID PO Last administered on 07/02/18 08:24; Admin Dose 100 MG; Start 06/28/18 at 21:00 Hydralazine HCl (Apresoline) 25 mg BID PRN PO ELEVATED BLOOD PRESSURE; Start 06/28/18 at 14:00 Hydralazine HCl (Apresoline) 25 mg TID PO Last administered on 07/02/18 08:24; Admin Dose 25 MG; Start 06/28/18 at 21:00 Ondansetron HCl (Zofran Inj) 4 mg Q4H PRN IV NAUSEA AND/OR VOMITING Last administered on 07/01/18 08:28; Admin Dose 4 MG; Start 06/28/18 at 15:00 Zolpidem Tartrate (Ambien) 5 mg HS PRN PO INSOMNIA; Start 06/28/18 at 15:30 Acetaminophen (Tylenol Tab) 650 mg Q4H PRN PO MILD PAIN(1-3)OR ELEVATED TEMP Last administered on 06/29/18 00:51; Admin Dose 650 MG; Start 06/28/18 at 15:30 Hydralazine HCl (Apresoline) 10 mg Q4H PRN IV ELEVATED SYSTOLIC BP Last administered on 06/29/18 00:44; Admin Dose 10 MG; Start 06/29/18 at 00:30 Nifedipine (Procardia Xl) 30 mg BID PO Last administered on 07/02/18 08:24; Admin Dose 30 MG; Start 07/01/18 at 21:00 Metoprolol Tartrate (Lopressor) 25 mg QHS PO ; Start 07/01/18 at 21:00 VTE Prophylaxis Risk score (from Nsg)>0 risk: 1 SCD applied (from Nsg): Yes Lines/Catheters IV Catheter Type: Saline Lock [place] in Place: No Assessment/Plan Assessment/Plan 53-year-old male with end-stage renal disease, on hemodialysis fluid overload due to missed dialysis times 5 days prior to admission Persistent hypoxia despite dialysis for 3 consecutive days Hypertension Hyperlipidemia High resolution CT of the chest 2D echo Consider further dialysis Nephrology follow-up Case was discussed with MARINA Alvarez MD Jul 02, 2018 09:22
--- NOTE | 2018-07-02 13:33 | CONS ---
Assessment/Plan Assessment/Plan Assessment/Plan (Daily) 1. acute fluid overload with pulmonary edema due to missed HD- Improving 2. acute hyperkalemia due to missed HD- Resolved 3. ESRD on HD - missed HD x 5 days 4. H/O HTN 5. H/o HL 6. Left upper extremity AVF in place Plan: s/p HD today 1.5 L removed, BP stable, afebrile plan to discharge today; he follows at [facility] HD center will follow up Consultation Date/Type/Reason Admit Date/Time Jun 28, 2018 at 12:44 Initial Consult Date 06/28/18 Requesting Provider: MARINA REYES MD Date/Time of Note DATE: 07/02/18 TIME: 13:32 24 HR Interval Summary Free Text/Dictation nad feels better no new events reported last night Detailed Summary Eyes: no complaints ENT: no complaints Respiratory: no complaints Cardiovascular: no complaints Gastrointestinal: no complaints Genitourinary: no complaints Musculoskeletal: no complaints Skin: no complaints Exam/Review of Systems Exam Vitals Vital Signs Date Temp Pulse Resp B/P (MAP) Pulse Ox O2 O2 Flow FiO2 Time Delivery Rate 07/02/18 67 12:45 07/02/18 98.0 18 118/67 98 12:41 (84) 07/02/18 Nasal 2.0 08:00 Cannula Intake and Output 07/01/18 07/01/18 07/02/18 1515:00 23:00 07:00 IntakeIntake Total 600 ml OutputOutput Total 2300 ml 1500 ml BalanceBalance -2300 ml -900 ml Constitutional: alert, well developed Psych: nl mood/affect Eyes: nl lids, nl sclera ENMT: nl external ears & nose Neck: non-tender Respiratory: clear to auscultation Cardiovascular: nl pulses, other (s1s2) Gastrointestinal: soft, non-tender Musculoskeletal: nl extremities to inspection Extremities: normal pulses Neurological: nl speech, other (alert/responsive) Lymph: nontender Results Result Diagram: 07/02/18 0501 07/02/18 0501 Results 24hrs Laboratory Tests Test 07/02/18 05:01 White Blood Count 9.7 Red Blood Count 3.49 #L Hemoglobin 11.3 #L Hematocrit 35.7 #L Mean Corpuscular Volume 102.3 H Mean Corpuscular Hemoglobin 32.4 Mean Corpuscular Hemoglobin Concent 31.7 L Red Cell Distribution Width 13.3 Platelet Count 213 # Mean Platelet Volume 11.3 H Immature Granulocytes % 0.300 Neutrophils % 49.2 Lymphocytes % 21.1 Monocytes % 13.1 H Eosinophils % 15.8 H Basophils % 0.5 Nucleated Red Blood Cells % 0.0 Immature Granulocytes # 0.030 Neutrophils # 4.8 Lymphocytes # 2.0 Monocytes # 1.3 H Eosinophils # 1.5 H Basophils # 0.1 Nucleated Red Blood Cells # 0.0 Sodium Level 143 Potassium Level 4.9 Chloride Level 99 Carbon Dioxide Level 25 Anion Gap 19 H Blood Urea Nitrogen 54 H Creatinine 6.39 H Est Glomerular Filtrat Rate mL/min 9 L Glucose Level 156 Calcium Level 9.7 Medications Medication Current Medications Heparin Sodium (Porcine) (Heparin (1000 Units/ml)) 4,000 unit AFTER DIALYSIS CATHETER Last administered on 07/01/18 13:37; Admin Dose 3,300 UNIT; Start 06/28/18 at 14:00 Albumin Human 100 ml @ 100 mls/hr WITH DIALYSIS PRN IV SBP <90 DURING DIALYSIS Last administered on 07/01/18 12:07; Admin Dose 100 MLS/HR; Start 06/28/18 at 14:00 Sodium Chloride (NS) -To prime the dialy... DIRECTED FOR HD PRN IV HD; Start 06/28/18 at 14:00 Aspirin (Halfprin) 81 mg DAILY PO Last administered on 07/02/18 08:24; Admin Dose 81 MG; Start 06/29/18 at 09:00 Atorvastatin Calcium (Lipitor) 20 mg QHS PO Last administered on 07/01/18 21:25; Admin Dose 20 MG; Start 06/28/18 at 21:00 Baclofen (Lioresal) 10 mg QHS PO Last administered on 07/01/18 21:25; Admin Dose 10 MG; Start 06/28/18 at 21:00 Calcium Acetate (Phoslo) 1,334 mg WITH MEALS PO Last administered on 07/02/18 13:00; Admin Dose 1,334 MG; Start 06/28/18 at 18:00 Furosemide (Lasix) 40 mg DAILY PO Last administered on 07/02/18 08:25; Admin Dose 40 MG; Start 06/29/18 at 09:00 Gabapentin (Neurontin) 100 mg TID PO Last administered on 07/02/18 13:01; Admin Dose 100 MG; Start 06/28/18 at 21:00 Hydralazine HCl (Apresoline) 25 mg BID PRN PO ELEVATED BLOOD PRESSURE; Start 06/28/18 at 14:00 Hydralazine HCl (Apresoline) 25 mg TID PO Last administered on 07/02/18 13:01; Admin Dose 25 MG; Start 06/28/18 at 21:00 Ondansetron HCl (Zofran Inj) 4 mg Q4H PRN IV NAUSEA AND/OR VOMITING Last administered on 07/01/18 08:28; Admin Dose 4 MG; Start 06/28/18 at 15:00 Zolpidem Tartrate (Ambien) 5 mg HS PRN PO INSOMNIA; Start 06/28/18 at 15:30 Acetaminophen (Tylenol Tab) 650 mg Q4H PRN PO MILD PAIN(1-3)OR ELEVATED TEMP Last administered on 06/29/18 00:51; Admin Dose 650 MG; Start 06/28/18 at 15:30 Hydralazine HCl (Apresoline) 10 mg Q4H PRN IV ELEVATED SYSTOLIC BP Last administered on 06/29/18 00:44; Admin Dose 10 MG; Start 06/29/18 at 00:30 Nifedipine (Procardia Xl) 30 mg BID PO Last administered on 07/02/18 08:24; Admin Dose 30 MG; Start 07/01/18 at 21:00 Metoprolol Tartrate (Lopressor) 25 mg QHS PO ; Start 07/01/18 at 21:00 ANI ESCALONA Jul 02, 2018 13:33
[2018-07-02] MEDS: METOPROLOL 25 MG TAB PO SCH (20:06)
[2018-07-02] MEDS: BACLOFEN 10 MG TAB PO SCH (20:06)
[2018-07-02] MEDS: ATORVASTATIN 20 MG TAB PO SCH (20:06)
--- NOTE | 2018-07-03 09:30 | PDOCDIS ---
Discharge Instructions DIAGNOSIS Discharge Diagnosis 53-year-old male with fluid overload End-stage renal disease, on hemodialysis Hyperkalemia, resolved Hypertension Hyperlipidemia Noncompliance 53-year-old male with end-stage renal disease, on hemodialysis, presented to emergency room with complaint of shortness of breath and frothy sputum. He was diagnosed with fluid overload and hyperkalemia. Patient underwent urgent hemodialysis and his condition improved. Serum potassium was back to normal. He required dialysis 3 consecutive days. He is undergoing repeat dialysis prior to discharge. Patient still had crackles at the bases. Case was discussed with Dr. Badillo. He is in a stable condition for discharge his room air saturation was 99% on the day of discharge. He had a high resolution chest CT which showed groundglass opacities consistent with mild pulmonary edema. 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 Snow. Patient reported shaking prior to dialysis on Tuesday and they refused to dialyze him. He was evaluated at [facility] and discharged home from ER. I will refer him to neurology for further evaluation. He is in a stable condition for discharge. Case was also discussed with Dr. Badillo. CONDITION [id number] Patient Condition: [id number] Good HOME CARE INSTRUCTIONS: [id number] Diet Instructions: [id number] Activity Restrictions: [id number] No Restrictions FOLLOW UP/APPOINTMENTS Follow-up Plan pcp 1 week Outpatient HD [employer] 1 week Neurology follow-up MARINA REYES MD Jul 03, 2018 09:30
--- NOTE | 2018-07-03 13:32 | RADRPT ---
Echocardiogram Report Patient Name: MARZENA MAYAPatient ID: [id number] : 1965 (53y 2m)Study Date: 07/02/2018 7:27:49 AM Gender: La[place]cession #: [id number] Tech: ELMO Location: Ref.Physician: MARINA REYES Height(Cm): BSA: Weight(Kg): Quality: GoodAccount #: Procedures: Echocardiographic Report: Transthoracic echocardiogram with complete 2D, M-Mode, and doppler examination. Indications: Shortness of breath. Measurements: 2D/M Mode Doppler Measurement Value Normal Range Measurement Value Normal Range LVIDd 2D 3.9 [ 4.2 - 5.8 ] cm CHELSI Vmax 2.5 [ 2.0 - 4.0 ] cm2 LVIDs 2D 2.8 [ 2.5 - 4.0 ] cm AV Mean Lyndon 0.9 [ 70.0 - 90.0 ] cm/sec LVPWd 2D 1.2 [ 0.6 - 1.0 ] cm AV Mean PG 3.0 [ 2.0 - 4.0 ] mmHg IVSd 2D 1.2 [ 0.6 - 1.0 ] cm AV Peak Lyndon 1.2 [ 100.0 - 170.0 ] cm/sec IVS/LVPW 2D 1.0 ratio AV Peak PG 5.0 [ 2.0 - 9.0 ] mmHg EF 2D 60.0 [ 52.0 - 72.0 ] percent AV VTI 22.2 cm LVOT Diam 2.0 [ 2.3 - 2.9 ] cm LVOT Peak Lyndon 0.9 [ 70.0 - 110.0 ] cm/sec LVOT Area 3.1 cm2 LVOT Peak PG 3.0 [ 2.0 - 6.0 ] mmHg MV E Peak Lyndon 0.7 [ 60.0 - 130.0 ] cm/sec MV A Peak Lyndon 0.9 [ 100.0 - 120.0 ] cm/sec MV E/A 0.8 [ 0.8 - 1.5 ] ratio MV Decel Time 236 [ 104 - 258 ] msec Lat E` Lyndon 0.1 [ 10.0 - 15.0 ] cm/sec Med E` Lyndon 0.0 cm/sec MV E/A 0.8 [ 0.8 - 1.5 ] ratio PV Peak Lyndon 0.7 [ 40.0 - 80.0 ] cm/sec PV Peak PG 2.0 mmHg Findings: Left Ventricle: Normal left ventricular systolic function. Mild concentric left ventricular hypertrophy. Ejection fraction is visually estimated at 60 %. Tissue Doppler/Mitral Doppler indices are consistent with impaired relaxation (Stage I diastolic dysfunction). Right Ventricle: Normal right ventricular size. Normal right ventricular systolic function. Left Atrium: Upper limit of normal left atrial size. Right Atrium: The right atrium is normal in size. Mitral Valve: Normal appearance and function of the mitral valve with trace regurgitation. Aortic Valve: Normal appearance of the aortic valve. No significant aortic stenosis with trivial insufficiency. Tricuspid Valve: Normal appearance and function of the tricuspid valve with trace physiologic regurgitation. Pulmonic Valve: Normal pulmonic valve appearance. No evidence of pulmonic regurgitation. Pericardium: Normal pericardium with no significant pericardial effusion. Aorta: Normal aortic root. IVC: The IVC is not well visualized. Conclusions: Normal left ventricular systolic function. Mild concentric left ventricular hypertrophy. Ejection fraction is visually estimated at 60 %. Tissue Doppler/Mitral Doppler indices are consistent with impaired relaxation (Stage I diastolic dysfunction). Normal right ventricular size. Normal right ventricular systolic function. Upper limit of normal left atrial size. The right atrium is normal in size. No significant valvular stenosis or regurgitation seen. Normal pericardium with no significant pericardial effusion. Electronically Signed By: Franko Doe 2018-07-03 13:30:54 PST
== END 2018-07-02 20:20 | disposition home or self-care (01) | DRG 640 ==
LOC: E/R 10:25 → 6WM 12:44
PROVIDERS: ADMIT Internal Medicine; ATTEND Internal Medicine
PROC: 5A1D70Z Performance of Urinary Filtration, Intermittent, Less than 6 Hours Per Day (ICD-10-PCS; principal; 2018-06-28)
DX: E87.70 Fluid overload, unspecified (principal); N18.6 End stage renal disease; I12.0 Hypertensive chronic kidney disease with stage 5 chronic kidney disease or end stage renal disease; J81.1 Chronic pulmonary edema; E87.2 Acidosis; Z99.2 Dependence on renal dialysis; Z91.15 Patient's noncompliance with renal dialysis; E78.5 Hyperlipidemia, unspecified; E87.5 Hyperkalemia; R09.02 Hypoxemia
CPT/HCPCS: 36415; 36600; 71045; 71250; 80048; 80053; 82803; 83735; 84100; 84484; 85025; 85610; 85730; 86850; 86900; 86901; 87040; 87340; 90935; 93005; 93306; J0360; J1644; J2405; P9047

== ENCOUNTER 2018-12-09 14:08 | Emergency (ER) | payer MEDICAID, OTHER ==
[~2018-12-09] VITALS: Ht 165.1 cm; Wt 73.3 kg
[~2018-12-09 14:08] MED LIST changes: +ASPI-817 PO; +BACL10TA PO
[2018-12-09 14:14] VITALS: Ht 165.1 cm; Wt 73.3 kg
[2018-12-09] MEDS ORDERED: METOCLOPRAMIDE 10 MG INJ IV STA (15:11)
[2018-12-09] MEDS ORDERED: ACETAMINOPHEN 500 MG TAB PO STA (16:47)
[2018-12-09 17:47] VITALS: BP 163/74; PULSE 80; RESP 17
--- NOTE | 2018-12-09 18:38 | ERD ---
ER Documentation Chief Complaint Chief Complaint HEADACHE NAUSEA & VOMITTING X2 DAYS HPI 53-year-old male presenting with a gradual onset left-sided headache that is aching. He has associated nausea with one episode of vomiting. He states that his blood pressure has been high. Denies any abdominal pain, chest pain, shortness of breath, focal weakness or numbness, vision disturbance. Headache is a 9 out of 10, nonradiating. No alleviating factors. He has not tried any medications for his pain. ROS All systems reviewed and are negative except as per history of present illness. Medications Home Meds Reported Medications Nifedipine* (Nifedipine ER*) 60 Mg Tablet.sa, 60 MG PO BID, TAB.SA 12/09/18 Metoprolol Tartrate* (Lopressor*) 50 Mg Tab, 50 MG PO QHS, #60 TAB 12/09/18 Hydralazine Hcl* (Hydralazine Hcl*) 25 Mg Tab, 25 MG PO Q8, #90 TAB 12/09/18 Gabapentin* (Gabapentin*) 100 Mg Capsule, 100 MG PO TID, #90 CAP 12/09/18 Furosemide* (Furosemide*) 40 Mg Tablet, 40 MG PO DAILY, TAB 12/09/18 Ferrous Sulfate* (Ferrous Sulfate*) 325 Mg Tabec, 325 MG PO BID, TAB 12/09/18 Baclofen* (Baclofen*) 10 Mg Tablet, 10 MG PO DAILY, TAB 12/09/18 Atorvastatin Calcium* (Atorvastatin Calcium*) 20 Mg Tablet, 20 MG PO QHS, #30 TAB 12/09/18 Aspirin* (Aspirin* EC) 81 Mg Tablet.dr, 81 MG PO DAILY, TAB 12/09/18 Calcium Acetate* (Calcium Acetate*) 667 Mg Capsule, 1334 MG PO WITH MEALS, #60 CAP 12/09/18 Discontinued Reported Medications Baclofen* (Baclofen*) 10 Mg Tablet, 10 MG PO QHS, TAB 06/28/18 Hydralazine Hcl* (Hydralazine Hcl*) 25 Mg Tab, 25 MG PO BID PRN for ELEVATED BLOOD PRESSURE, #60 TAB 06/28/18 Metoprolol Tartrate* (Lopressor*) 50 Mg Tab, 50 MG PO QHS, #60 TAB 06/28/18 Calcium Acetate* (Calcium Acetate*) 667 Mg Capsule, 1334 MG PO WITH MEALS, #60 CAP 06/28/18 Ferrous Sulfate* (Ferrous Sulfate*) 325 Mg Tabec, 325 MG PO BID, TAB 11/21/17 Nifedipine* (Nifedipine ER*) 60 Mg Tablet.sa, 60 MG PO BID, TAB.SA 11/21/17 Gabapentin* (Gabapentin*) 100 Mg Capsule, 100 MG PO TID, #90 CAP 10/24/17 Atorvastatin Calcium* (Atorvastatin Calcium*) 20 Mg Tablet, 20 MG PO QHS, #30 TAB 10/24/17 Aspirin (Low Dose Aspirin) 81 Mg Tablet.dr, 81 MG PO DAILY, #30 TAB 10/24/17 Furosemide* (Furosemide*) 40 Mg Tablet, 40 MG PO DAILY, TAB 10/24/17 Discontinued Scripts Hydralazine Hcl* (Hydralazine Hcl*) 25 Mg Tab, 25 MG PO TID for 30 Days, #90 TAB 1 Refill Prov:HUBERT SHANKS 10/26/17 Allergies Allergies: Coded Allergies: No Known Allergies (Unverified Allergy, Unknown, 12/09/18) PMhx/Soc Medical and Surgical Hx: pt denies Surgical Hx History of Surgery: No Anesthesia Reaction: No Hx Neurological Disorder: No Hx Respiratory Disorders: No Hx Cardiac Disorders: Yes (HTN, HLD) Hx Psychiatric Problems: No Hx Miscellaneous Medical Probl: No Hx Alcohol Use: No Hx Substance Use: No Hx Tobacco Use: No Smoking Status: Never smoker FmHx Family History: diabetes Physical Exam Vitals Vital Signs Date Temp Pulse Resp B/P (MAP) Pulse Ox O2 O2 Flow FiO2 Time Delivery Rate 12/09/18 98.6 80 17 163/74 100 Room Air 17:47 (103) 12/09/18 98.2 72 18 156/74 100 14:14 (101) Physical Exam Const: No acute distress Head: Atraumatic Eyes: Normal Conjunctiva, EOMI, no nystagmus ENT: Normal External Ears, Nose and Mouth. Neck: Full range of motion. No meningismus. Resp: Clear to auscultation bilaterally Cardio: Regular rate and rhythm, no murmurs Abd: Soft, non tender, non distended. Normal bowel sounds Skin: No petechiae or rashes Back: No midline or flank tenderness Ext: No cyanosis, or edema Neur: Awake and alert,, no facial asymmetry, cranial nerves intact, strength and sensations intact in all 4 extremities Psych: Normal Mood and Affect Result Diagram: 12/09/18 1551 12/09/18 1551 Results 24 hrs Laboratory Tests Test 12/09/18 15:51 White Blood Count 5.2 10^3/ul Red Blood Count 3.04 10^6/ul Hemoglobin 9.5 g/dl Hematocrit 28.4 % Mean Corpuscular Volume 93.4 fl Mean Corpuscular Hemoglobin 31.3 pg Mean Corpuscular Hemoglobin Concent 33.5 g/dl Red Cell Distribution Width 14.5 % Platelet Count 94 10^3/UL Mean Platelet Volume 10.7 fl Immature Granulocytes % 0.200 % Neutrophils % 52.2 % Lymphocytes % 23.7 % Monocytes % 13.9 % Eosinophils % 9.4 % Basophils % 0.6 % Nucleated Red Blood Cells % 0.0 /100WBC Immature Granulocytes # 0.010 10^3/ul Neutrophils # 2.7 10^3/ul Lymphocytes # 1.2 10^3/ul Monocytes # 0.7 10^3/ul Eosinophils # 0.5 10^3/ul Basophils # 0.0 10^3/ul Nucleated Red Blood Cells # 0.0 10^3/ul Prothrombin Time 13.5 Sec Prothrombin Time Ratio 1.1 INR International Normalized Ratio 1.02 Activated Partial Thromboplast Time 29.8 Sec Sodium Level 136 mmol/L Potassium Level 3.9 mmol/L Chloride Level 92 mmol/L Carbon Dioxide Level 36 mmol/L Anion Gap 8 Blood Urea Nitrogen 30 mg/dl Creatinine 5.91 mg/dl Est Glomerular Filtrat Rate mL/min 10 mL/min Glucose Level 133 mg/dl Calcium Level 8.7 mg/dl Current Medications Medications Dose Sig/Isauro Start Time Status Last (Trade) Ordered Route PRN Stop Time Admin Dose Reason Admin 10 mg ONCE STAT 12/09/18 DC 12/09/18 Metoclopramid IV 15:11 12/09/18 16:49 e HCl 15:13 (Reglan) 1,000 mg ONCE STAT 12/09/18 DC 12/09/18 Acetaminophen PO 16:47 12/09/18 17:07 (Tylenol 16:48 Tab) Procedures/MDM EMERGENT LABS AND DIAGNOSTIC STUDIES: Lab Results above were reviewed and interpreted by me. CBC: Mild anemia, likely secondary to chronic disease. Thrombocytopenia, unclear etiology. BMP: Elevated BUN and creatinine, consistent with ESRD. [no e/o clinically significant electrolyte abnormality severe acidosis, alkalosis, diabetic ketoacidosis] 12-lead EKG was interpreted by Peterson Hernandez MD: Normal Sinus Rhythm Normal axis Normal intervals No acute ST or T wave changes suggestive of acute ischemia or STEMI. Radiology Results as interpreted by Radiology below were reviewed by Rei Hernandez MD: CT head shows no acute abnormalities Initial Nursing notes reviewed. Previous Medical Records requested via the Electronic Health Record. EMERGENCY DEPARTMENT COURSE / MEDICAL DECISION MAKING: Patient is presenting with hypertension and headache. He was neurologically intact on exam. Treated with IV Reglan with resolution of his symptoms. Low suspicion for stroke or intracranial hemorrhage. Labs do not show any significant acute abnormalities. CT head is negative. I feel patient is stable for discharge with continued outpatient follow-up. Return precautions given. Patient's blood pressure was elevated (>120/80) but appears stable without evidence of hypertensive emergency or urgency. The patient was counseled about the risks of hypertension and urged to pursue outpatient monitoring and therapy within a week with their primary care physician. Departure Diagnosis: Primary Impression: Headache Headache type: unspecified Headache chronicity pattern: acute headache Intractability: not intractable Qualified Codes: R51 - Headache Additional Impression: Hypertensive urgency Condition: Stable Patient Instructions: Self-Care for Headaches, Hypertension, Established, Out O f Control Referrals: DOCTOR,NOT ON STAFF (PCP) Additional Instructions: Regrese a estas instalaciones si no se mejora saulo esperbamos o saulo le dijimos.Llame al doctor MAANA y dharmesh bisi TOÑITO PARA DENTRO DE 2-3 PHELPS.Dgale a la secretaria que nosotros le instruimos hacer esta toñito.Avise o llame si easley condicin se empeora antes de la toñito. Regresa aqui si peor o no mejor. MARTA HERNANDEZ MD Dec 09, 2018 18:14
== END 2018-12-09 17:48 | disposition home or self-care (01) ==
LOC: FTE 14:08 → E/R 17:48
DX: I16.0 Hypertensive urgency (principal); I10 Essential (primary) hypertension; Z79.82 Long term (current) use of aspirin
CPT/HCPCS: 36415; 70450; 80048; 85025; 85610; 85730; 93005; 96374; J2765; Z7502; Z7610